=== PATIENT | male | born 2000 | race Hispanic/Latino ===

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

== ENCOUNTER 2020-01-03 16:47 | Emergency (ER) | payer BC | END 2020-01-03 18:06 | disposition home or self-care (01) | LOC: EDH 16:47 | DX: R10.84 Generalized abdominal pain (principal); R11.2 Nausea with vomiting, unspecified; Z72.0 Tobacco use | CPT/HCPCS: 99281 ==

== ENCOUNTER 2020-10-18 17:48 | Emergency (ER) | payer BC ==
[~2020-10-18] VITALS: Ht 170.2 cm; Wt 65.8 kg
[2020-10-18] MEDS ORDERED: ONDANSETRON 4MG INJ IVP ONE (18:00)
[2020-10-18 18:24] LABS: BASOPHILS % (AUTO) 0.4 % (0.0-5.0); EOSINOPHILS % (AUTO) 0.6 % (0.0-8.0); HEMATOCRIT 41.1 % (42-54); MEAN CORPUSCULAR HEMOGLOBIN 28.7 pg (27.0-33.0); MEAN CORPUSCULAR HGB CONC 33.1 g/dL (32.0-36.0); MEAN CORPUSCULAR VOLUME 86.7 fL (80-100); MONOCYTES % (AUTO) 4.6 % (3.0-13.0); NEUTROPHILS % (AUTO) 75.9 % (40.0-77.0); PLATELET COUNT (AUTO) 218 K/uL (130-400); RED BLOOD CELL COUNT(AUTO) 4.74 MIL/uL (4.50-6.20); RED CELL DISTRIBUTION WIDTH 13.7 % (11.0-15.5); WHITE BLOOD COUNT (AUTO) 14.2 K/uL (4.8-10.8)
[2020-10-18] MEDS ORDERED: MORPHINE 4 MG SYG ONE (18:26)
[2020-10-18] MEDS: 0.9%NACL 1000ML 1,000 ML IV SCH ×4 (18:31→19:55)
[2020-10-18 18:33] LABS: CREATININE 1.2 mg/dL (0.5-1.5); POTASSIUM 3.3 mmol/L (3.5-5.1)
[2020-10-18 18:42] LABS: ALBUMIN 4.5 g/dL (3.5-5.0); BILIRUBIN,TOTAL 0.6 mg/dL (0.2-1.0); TOTAL PROTEIN, SERUM 7.9 g/dL (6.0-8.3)
[2020-10-18 18:43] LABS: AMYLASE 113 U/L (25-115); CREATINE KINASE, TOTAL 106 U/L (21-232); LIPASE 43 U/L (114-286)
[2020-10-18 18:52] LABS: APPEARANCE,URINE Clear (CLEAR); BILIRUBIN,URINE Negative (NEGATIVE); COLOR,URINE Yellow (YELLOW); GLUCOSE, URINE (UA) Negative (NEGATIVE); KETONES,URINE Negative (NEGATIVE); LEUKOCYTE ESTERASE ,URINE Negative (NEGATIVE); NITRATE,URINE Negative (NEGATIVE); OCCULT BLOOD,URINE Negative (NEGATIVE); PH,URINE 6.5 (5.0-8.0); PROTEIN,URINE Negative (NEGATIVE)
[2020-10-18 18:59] LABS: AMPHET/METH SCREEN,URINE NEGATIVE (NEGATIVE); BARBITURATE SCREEN, URINE NEGATIVE (NEGATIVE); BENZODIAZEPINES SCREEN,URINE NEGATIVE (NEGATIVE); CANNABINOID SCREEN,URINE POSITIVE (NEGATIVE); COCAINE SCREEN,URINE NEGATIVE (NEGATIVE); OPIATE SCREEN,URINE NEGATIVE (NEGATIVE); PHENCYCLIDINE SCREEN,URINE NEGATIVE (NEGATIVE)
[2020-10-18] MEDS ORDERED: MORPHINE 4 MG SYG IV ONE (19:00)
[2020-10-18] MEDS ORDERED: MORPHINE 4 MG SYG IV PRN (19:00)
[2020-10-18 19:18] LABS: BACTERIA,URINE None Seen /HPF (None Seen); MUCUS,URINE Few LPF (None Seen); RBC,URINE 0-1 /HPF (0-1); SQUAMOUS EPITHELIAL CELL,UR Few /HPF (0-2); WBC,URINE 0-1 /HPF (0-1)
[2020-10-18] MEDS ORDERED: DiphenhydrAMINE HCL 50 MG/ML VIAL IV ONE (19:30)
[2020-10-18] MEDS ORDERED: HALOPERIDOL LACTATE 5 MG/ML VIAL IM SCH (19:30)
[2020-10-18 20:10] VITALS: BP 124/58
[2020-10-18] MEDS ORDERED: IOHEXOL-350 75 ML VIAL IV ONE (20:21)
[2020-10-18] MEDS ORDERED: AMOX-426 PO (21:18)
[2020-10-18] MEDS ORDERED: ACET-66 PO (21:18)
[2020-10-18] MEDS ORDERED: ZOSYN 3.375GM +NS 50ML IV ONE (22:00)
[2020-10-19 04:28] VITALS: BP 120/60
== END 2020-10-19 05:21 | disposition home or self-care (01) ==
LOC: EDH 17:48
DX: K35.80 Unspecified acute appendicitis (principal); R11.2 Nausea with vomiting, unspecified; Z20.822 Contact with and (suspected) exposure to COVID-19; Z79.899 Other long term (current) drug therapy
CPT/HCPCS: 36415; 74177; 80053; 80305; 81001; 82150; 82550; 83690; 84484; 85025; 87635; 93005; 96365; 96366; 96372; 96375 ×2; 99285; C9803; J1200; J1630; J2270; J2405; J2543; Q9967